=== PATIENT | male | born 1980 | race Caucasian/White ===

== ENCOUNTER 2016-12-05 22:58 | Emergency (ER) | payer OTHER ==
[~2016-12-05 22:58] MED LIST: ALBUTEROL17 GM INH; BACTRIM DS TABL1 TA1 PO; DICLOFENAC PO; DOXYCYCLINE HY100 M2 PO; ELIMITE60 GM TOP; FLEXERIL PO; IBUPROFEN PO; MOTRIN PO; NO MEDICATIONS; PREDNISONE PO; PRILOSEC PO; PRILOSEC20 M1 PO; ROBAXIN 750750 MG PO; VICODIN 5/500 T1 TAB PO; VOLTAREN75 MG PO
== END 2016-12-05 23:36 | disposition home or self-care (01) ==
LOC: SED 22:58
DX: J03.90 Acute tonsillitis, unspecified (principal); K21.9 Gastro-esophageal reflux disease without esophagitis; F17.200 Nicotine dependence, unspecified, uncomplicated
CPT/HCPCS: 87651; 99282